=== PATIENT | male | born 1970 | race Caucasian/White ===

== ENCOUNTER 2017-10-20 08:54 | Emergency (ER) | payer OTHER ==
[2017-10-20] MEDS ORDERED: HYDROCODONE/APAP 10/325 TAB ONE (09:31)
[2017-10-20 10:50] LABS: Absolute Lymphocytes (CBC) 1.3 K/uL (0.7-4.9); Absolute Monocytes 0.5 K/uL (0.1-1.3); Absolute Neutrophil 5.4 K/uL (1.8-8.0); Basophils % 0.3 % (0-1.3); Eosinophils % 1.4 % (0-4.4); Hematocrit 45.7 % (39.6-49.0); Lymphocytes % 17.5 % (15.3-44.8); MCH 33.2 pg (27.0-35.0); MCV 96.7 fL (80-100); MPV 8.8 fL (7.6-11.3); RBC Red Blood Cell Count 4.73 M/uL (4.33-5.43)
--- NOTE | 2017-10-20 10:59 | RAD REPORT ---
EXAM DESCRIPTION: RAD - Ribs Bilateral W/Chest - 10/20/2017 10:39 am CLINICAL HISTORY: Chest pain/left rib pain. Kicked by a horse. FINDINGS: The lungs appear clear of acute infiltrate. The heart is normal size. A rib fracture is not seen.
[2017-10-20 11:06] LABS: Albumin 4.2 g/dL (3.4-5.0); Bilirubin Total 1.1 mg/dL (0.2-1.0); Protein, Total 7.5 g/dL (6.4-8.2)
--- NOTE | 2017-10-20 11:09 | EDPHYS ---
Physician Documentation [facility] Name: Jesus Torres Age: 47 yrs Sex: Male : 1970 Arrival Date: 10/20/2017 Time: 08:57 Bed 14 Private MD: out of town, doctor ED Physician Jorje Christian HPI: 10/20 09:25 This 47 yrs old Male presents to ER via Ambulatory with complaints of Rib kav Pain, Kicked by Horse. 09:25 Onset: The symptoms/episode began/occurred 1 day(s) ago. Associated signs and symptoms: kav Pertinent positives: hematuria, Pertinent negatives: chest pain, cough. Modifying factors: The patient symptoms are alleviated by remaining still, the patient symptoms are aggravated by movement. Historical: - Allergies: 09:16 Iodine; iw - Home Meds: 09:16 losartan 50 mg oral tab 1 tab once daily [Active]; iw - PMHx: 09:16 Hypertension; iw - PSHx: 09:16 Knee surgery; laminectomy; iw - Immunization history:: Adult Immunizations up to date. - Social history:: Smoking status: Patient/guardian denies using tobacco. - Ebola Screening: : Patient negative for fever greater than or equal to 101.5 degrees Fahrenheit, and additional compatible Ebola Virus Disease symptoms Patient denies exposure to infectious person Patient denies travel to an Ebola-affected area in the 21 days before illness onset No symptoms or risks identified at this time. - Family history:: not pertinent. - Hospitalizations: : No recent hospitalization is reported. - History obtained from: . ROS: 09:25 Constitutional: Negative for fever, chills, and weight loss, Eyes: Negative for injury, kav pain, redness, and discharge, ENT: Negative for injury, pain, and discharge, Neck: Negative for injury, pain, and swelling, Cardiovascular: Negative for chest pain, palpitations, and edema, Respiratory: Negative for shortness of breath, cough, wheezing, and pleuritic chest pain, Abdomen/GI: Negative for abdominal pain, nausea, vomiting, diarrhea, and constipation, Back: Negative for injury and pain, : Negative for injury, bleeding, discharge, and swelling, MS/Extremity: Negative for injury and deformity, Skin: Negative for injury, rash, and discoloration, Neuro: Negative for headache, weakness, numbness, tingling, and seizure, Psych: Negative for depression, anxiety, suicide ideation, homicidal ideation, and hallucinations, Allergy/Immunology: Negative for hives, rash, and allergies, Endocrine: Negative for neck swelling, polydipsia, polyuria, polyphagia, and marked weight changes, Hematologic/Lymphatic: Negative for swollen nodes, abnormal bleeding, and unusual bruising. Exam: 09:25 Constitutional: This is a well developed, well nourished patient who is awake, alert, kav and in no acute distress. Head/Face: Normocephalic, atraumatic. Eyes: Pupils equal round and reactive to light, extra-ocular motions intact. Lids and lashes normal. Conjunctiva and sclera are non-icteric and not injected. Cornea within normal limits. Periorbital areas with no swelling, redness, or edema. ENT: Nares patent. No nasal discharge, no septal abnormalities noted. Tympanic membranes are normal and external auditory canals are clear. Oropharynx with no redness, swelling, or masses, exudates, or evidence of obstruction, uvula midline. Mucous membranes moist. Neck: Trachea midline, no thyromegaly or masses palpated, and no cervical lymphadenopathy. Supple, full range of motion without nuchal rigidity, or vertebral point tenderness. No Meningismus. Cardiovascular: Regular rate and rhythm with a normal S1 and S2. No gallops, murmurs, or rubs. Normal PMI, no JVD. No pulse deficits. Respiratory: Lungs have equal breath sounds bilaterally, clear to auscultation and percussion. No rales, rhonchi or wheezes noted. No increased work of breathing, no retractions or nasal flaring. Abdomen/GI: Soft, non-tender, with normal bowel sounds. No distension or tympany. No guarding or rebound. No evidence of tenderness throughout. Back: No spinal tenderness. No costovertebral tenderness. Full range of motion. Skin: Warm, dry with normal turgor. Normal color with no rashes, no lesions, and no evidence of cellulitis. MS/ Extremity: Pulses equal, no cyanosis. Neurovascular intact. Full, normal range of motion. Neuro: Awake and alert, GCS 15, oriented to person, place, time, and situation. Cranial nerves II-XII grossly intact. Motor strength 5/5 in all extremities. Sensory grossly intact. Cerebellar exam normal. Normal gait. Psych: Awake, alert, with orientation to person, place and time. Behavior, mood, and affect are within normal limits. 09:25 Chest/axilla: Inspection: ecchymosis, that is mild, of the left lateral anterior chest Palpation: tenderness, that is mild, of the left lateral anterior chest. Vital Signs: 09:08 BP 128 / 89; Pulse 66; Resp 18; Temp 98.2(O); Pulse Ox 97% on R/A; Weight 104.33 kg; 5 Height 6 ft. 2 in. (187.96 cm); Pain 5/10; 11:30 BP 125 / 85; Pulse 65; Resp 18; Pulse Ox 100% on R/A; hj 09:08 Body Mass Index 29.53 (104.33 kg, 187.96 cm) [facility] MDM: 09:14 Medical screening is not applicable. [facility] 09:25 Data reviewed: vital signs, nurses notes. [facility] 10/20 09:25 Order name: CBC with Diff; Complete Time: 11:05 [facility] 10/20 11:05 Interpretation: Normal except: ELENITA% 73.8. [facility] 10/20 09:25 Order name: CMP; Complete Time: 11:10 [facility] 10/20 11:10 Interpretation: GFR 65; BILIT 1.1. [facility] 10/20 09:25 Order name: UA [facility] 10/20 10:55 Interpretation: Normal except. [facility] 10/20 09:25 Order name: Ribs Bilateral W/Chest XRAY; Complete Time: 11:04 [facility] 10/20 11:04 Interpretation: No acute disease. [facility] 10/20 10:56 Order name: Urine Dipstick--Ancillary (enter results) em1 Administered Medications: 09:30 Not Given (Patient Refused): [place] 10 mg-325 mg 1 tabs PO once hj Disposition: 10/21 06:34 Co-signature as Attending Physician, Jorje Christian MD I agree with the assessment and shahram plan of care. Disposition: 10/20/17 11:08 Discharged to Home. Impression: Hematuria, Strain of muscle and tendon of unspecified wall of thorax. - Condition is Stable. - Discharge Instructions: Rib Contusion, Hematuria, Adult. - Medication Reconciliation Form, Thank You Letter, Antibiotic Education, Prescription Opioid Use form. - Follow up: out of town, doctor; When: 5 - 6 days; Reason: Recheck today's complaints, Continuance of care, Re-evaluation by your physician. - Problem is new. - Symptoms have improved. - Notes: splint ribs when coughing otc ibuprofen as directed and as needed f/u with pcp in 5-7 days for repeat urine for DX: Hematuria Signatures: Dispatcher [employer] EDMS Jorje Christian, Laura Roldan MD, cha, MEMBERSHIP COUNSELOR MEMBERSHIP COUNSELOR Vanita Knutson, RN RN David Muñoz RN RN hj Corrections: (The following items were deleted from the chart) 10/20 11:30 11:08 10/20/2017 11:08 Discharged to Home. Impression: Hematuria; Strain of muscle and hj tendon of unspecified wall of thorax. Condition is Stable. Forms are Medication Reconciliation Form, Thank You Letter, Antibiotic Education, Prescription Opioid Use. Follow up: doctor out of town; When: 5 - 6 days; Reason: Recheck today's complaints, Continuance of care, Re-evaluation by your physician. Problem is new. Symptoms have improved. [email or web address]
--- NOTE | 2017-10-20 11:09 | ER ---
Nurse's Notes [facility] Name: Jesus Torres Age: 47 yrs Sex: Male : 1970 Arrival Date: 10/20/2017 Time: 08:57 Bed 14 Private MD: out of town, doctor Diagnosis: Hematuria;Strain of muscle and tendon of unspecified wall of thorax Presentation: 10/20 09:13 Presenting complaint: Patient states: was kicked by his horse in left ribs last night, iw has pain when taking a deep breath. Transition of care: patient was not received from another setting of care. Onset of symptoms was October 19, 2017. Risk Assessment: Do you want to hurt yourself or someone else? Patient reports no desire to harm self or others. Initial Sepsis Screen: Does the patient meet any 2 criteria? No. Patient's initial sepsis screen is negative. Does the patient have a suspected source of infection? No. Patient's initial sepsis screen is negative. Care prior to arrival: None. 09:13 Method Of Arrival: Ambulatory iw 09:13 Acuity: JENNIFER 4 iw Triage Assessment: 09:18 General: Appears in no apparent distress. uncomfortable, Behavior is calm, cooperative, hj appropriate for age. Pain: Complains of pain in rib pain and blood in urine. EENT: No signs and/or symptoms were reported regarding the EENT system. Neuro: Level of Consciousness is awake, alert, obeys commands, Oriented to person, place, time, situation, Appropriate for age. Cardiovascular: Capillary refill < 3 seconds Patient's skin is warm and dry. Respiratory: Reports pain with respiration Airway is patent Respiratory effort is even, unlabored, Respiratory pattern is regular, symmetrical. GI: No signs and/or symptoms were reported involving the gastrointestinal system. : Reports blood in urine. Derm: No signs and/or symptoms reported regarding the dermatologic system. Musculoskeletal: No signs and/or symptoms reported regarding the musculoskeletal system. Historical: - Allergies: 09:16 Iodine; iw - Home Meds: 09:16 losartan 50 mg oral tab 1 tab once daily [Active]; iw - PMHx: 09:16 Hypertension; iw - PSHx: 09:16 Knee surgery; laminectomy; iw - Immunization history:: Adult Immunizations up to date. - Social history:: Smoking status: Patient/guardian denies using tobacco. - Ebola Screening: : Patient negative for fever greater than or equal to 101.5 degrees Fahrenheit, and additional compatible Ebola Virus Disease symptoms Patient denies exposure to infectious person Patient denies travel to an Ebola-affected area in the 21 days before illness onset No symptoms or risks identified at this time. - Family history:: not pertinent. - Hospitalizations: : No recent hospitalization is reported. - History obtained from: . Screenin:18 Abuse screen: Denies threats or abuse. Denies injuries from another. Nutritional hj screening: No deficits noted. Tuberculosis screening: No symptoms or risk factors identified. Fall Risk None identified. Assessment: 09:18 Reassessment: see triage for assessment;. hj Vital Signs: 09:08 BP 128 / 89; Pulse 66; Resp 18; Temp 98.2(O); Pulse Ox 97% on R/A; Weight 104.33 kg; mh5 Height 6 ft. 2 in. (187.96 cm); Pain 5/10; 11:30 BP 125 / 85; Pulse 65; Resp 18; Pulse Ox 100% on R/A; hj 09:08 Body Mass Index 29.53 (104.33 kg, 187.96 cm) mh5 ED Course: 08:57 Patient arrived in ED. mr 08:58 out of town, doctor is Private Physician. mr 09:02 David Camara, XIAO is Primary Nurse. hj 09:14 Laura Goncalves FNP is PHCP. kav 09:14 Jorje Christian MD is Attending Physician. kav 09:14 Triage completed. iw 09:18 Arm band placed on right wrist. hj 09:26 Patient has correct armband on for positive identification. Placed in gown. Bed in low hj position. Side rails up X 1. Adult w/ patient. 09:45 Patient moved to radiology via wheelchair. jb2 10:21 X-ray completed. Patient tolerated procedure well. Patient moved back from radiology. jb2 10:26 Ribs Bilateral W/Chest XRAY In Process Unspecified. EDMS 11:06 out of town, doctor is Referral Physician. kav 11:29 No provider procedures requiring assistance completed. IV discontinued, intact, hj bleeding controlled, No redness/swelling at site. Pressure dressing applied. Administered Medications: 09:30 Not Given (Patient Refused): [place] 10 mg-325 mg 1 tabs PO once hj Outcome: 11:08 Discharge ordered by . emily 11:30 Discharged to home ambulatory, with family. 11:30 Condition: stable 11:30 Discharge instructions given to patient, family, Instructed on discharge instructions, follow up and referral plans. Demonstrated understanding of instructions, follow-up care. 11:30 Patient left the ED. blaise Signatures: Dispatcher [employer] EDLaura Veliz, Katiuska Gee mr Levin, Андрей jb2 Vanita Singh, David Chowdhury RN, RN RN hj Martinez, Maria [facility]
[2017-10-20 11:24] LABS: Urine Appearance CLEAR; Urine Bilirubin NEGATIVE (NEG); Urine Blood 3+ (NEG); Urine Color YELLOW; Urine Glucose NEGATIVE (NEG); Urine Protein NEGATIVE (NEG); Urine Urobilinogen 0.2 mg/dL (0.2-1.0); Urine pH 5.5 (5.0-7.0)
[2017-10-20 11:25] LABS: Urine Blood 3+ (NEG); Urine Glucose NEGATIVE (NEG); Urine Protein 1+ (NEG); Urine Specific Gravity 1.025 (1.005-1.030); Urine pH 5.5 (5.0-7.0)
[2017-10-20 11:39] LABS: Urine Microscopic Reflex ORDER UMIC
[2017-10-20 11:40] LABS: Urine Bacteria <20 /HPF (NONE SEEN); Urine Culture Reflex Order NOT NEEDED; Urine RBC >50 /HPF (NONE SEEN)
== END 2017-10-20 11:30 | disposition home or self-care (01) ==
LOC: ER 08:54
DX: R31.9 Hematuria, unspecified (principal); S29.019A Strain of muscle and tendon of unspecified wall of thorax, initial encounter; I10 Essential (primary) hypertension; W55.12XA Struck by horse, initial encounter; Y93.89 Activity, other specified; Y92.9 Unspecified place or not applicable; Y99.9 Unspecified external cause status; Z91.048 Other nonmedicinal substance allergy status
CPT/HCPCS: 36415; 71111; 80053; 81003; 81015; 85025; 99283